=== PATIENT | male | born 1940 | race Caucasian/White ===

== ENCOUNTER 2022-10-05 15:56 | Outpatient (CLI) | payer MEDICARE | END 2022-10-05 15:57 | disposition home or self-care (01) | LOC: TBSIIMAG 15:56 | PROVIDERS: ATTEND Neurological Surgery | DX: S22.009A Unspecified fracture of unspecified thoracic vertebra, initial encounter for closed fracture (principal); M47.812 Spondylosis without myelopathy or radiculopathy, cervical region | CPT/HCPCS: 72040 ==

== ENCOUNTER 2022-10-25 16:35 | Outpatient (CLI) | payer MEDICARE, OTHER | END 2022-10-25 16:36 | disposition home or self-care (01) | LOC: SCSRAD 16:35 | PROVIDERS: ATTEND Neurological Surgery | DX: S32.009A Unspecified fracture of unspecified lumbar vertebra, initial encounter for closed fracture (principal); S22.050A Wedge compression fracture of T5-T6 vertebra, initial encounter for closed fracture; S22.060A Wedge compression fracture of T7-T8 vertebra, initial encounter for closed fracture; M85.88 Other specified disorders of bone density and structure, other site | CPT/HCPCS: 72070 ==

== ENCOUNTER 2022-11-25 15:40 | Outpatient (CLI) | payer MEDICARE, OTHER | END 2022-11-25 15:41 | disposition home or self-care (01) | LOC: SCSRAD 15:40 | PROVIDERS: ATTEND Neurological Surgery | DX: S22.039D Unspecified fracture of third thoracic vertebra, subsequent encounter for fracture with routine healing (principal); S32.009A Unspecified fracture of unspecified lumbar vertebra, initial encounter for closed fracture; M54.2 Cervicalgia; S22.049D Unspecified fracture of fourth thoracic vertebra, subsequent encounter for fracture with routine healing; M47.812 Spondylosis without myelopathy or radiculopathy, cervical region; M43.8X4 Other specified deforming dorsopathies, thoracic region; M40.204 Unspecified kyphosis, thoracic region | CPT/HCPCS: 72040; 72070 ==

== ENCOUNTER 2023-09-27 07:48 | Outpatient (CLI) | payer MEDICARE, OTHER ==
[2023-09-27] MEDS ORDERED: Iopamidol 370 76% 100 ML VIAL ONE (13:21)
== END 2023-09-27 07:49 | disposition home or self-care (01) ==
LOC: CT 07:48
PROVIDERS: ATTEND Internal Medicine Cardiovascular Disease
DX: R09.89 Other specified symptoms and signs involving the circulatory and respiratory systems (principal); I70.8 Atherosclerosis of other arteries; R91.1 Solitary pulmonary nodule; K11.8 Other diseases of salivary glands
CPT/HCPCS: 70498; 82565; Q9967